=== PATIENT | female | born 1970 | race Caucasian/White ===

== ENCOUNTER → 2024-07-17 07:54 | Outpatient (REF) | payer BC, SELFPAY ==
[2024-07-17 10:30] LABS: ALT (SGPT) 33 U/L (0-35); AST (SGOT) 107 U/L (14-36); Albumin 4.2 g/dl (3.5-5.0); Alkaline Phosphatase 67 U/L (38-126); Direct Bilirubin 0.1 mg/dl (0.0-0.4); Iron 78 ug/dl (37-170); Total Bilirubin 0.6 mg/dl (0.2-1.3); Total Protein 6.6 g/dl (6.3-8.2)
[2024-07-17 10:39] LABS: Erythrocyte Sed Rate 9 mm/hour (0-20)
[2024-07-17 10:40] LABS: Percent Saturation 25 % (20-50); Total Iron Binding Capacity 312 ug/dl (265-497)
[2024-07-17 11:47] LABS: Ferritin 37.3 ng/ml (11.1-264.0)
[2024-07-17 13:21] LABS: Hepatitis B Core Ab, Total Negative (Negative)
[2024-07-18 17:27] LABS: EBV-EA (D) Ab IgG 5.8 U/mL (0.0-10.9); EBV-VCA IgM Antibodies <10.0 U/mL (0.0-43.9)
[2024-07-19] LABS: HCV Quant by NAAT IU/mL Not Detected; HCV Quant by NAAT Interp Not Detected (Not Detected); HCV Quant by NAAT Log IU/mL Not Detected log IU/mL
[2024-07-19 00:21] LABS: Endomysial IgA Antibody Titer <1:10 (<1:10)
[2024-07-19 01:19] LABS: tTG IgA Antibody <1.02 FLU (0.00-4.99)
[2024-07-19 19:10] LABS: Copper, Serum 84.9 ug/dL (80.0-155.0)
[2024-07-19 23:49] LABS: IgA 131 mg/dl (70-400)
== END ==
LOC: HWRAD 07:54
PROVIDERS: ATTENDING PHYSICIAN Physician Assistant Medical
DX: R74.8 Abnormal levels of other serum enzymes (principal)
CPT/HCPCS: 36415; 76700; 80076; 82525; 82728; 82784; 83516; 83540; 83550; 85652; 86231; 86663; 86664; 86665; 86704; 87522